=== PATIENT | female | born 1950 | race Caucasian/White ===

== ENCOUNTER → 2022-10-17 | Outpatient (CLI) | payer MEDICARE ==
--- NOTE | 2022-10-17 13:59 | Diagnostic Imaging Report ---
EXAMINATION: Right knee radiographs, 4 views. COMPARISON: None. HISTORY: 72-year-old female, right knee pain. FINDINGS: There is a right total knee prosthesis. The patella is normally positioned. There is no identified periprosthetic lucency. There is no identified acute fracture. There is a knee joint effusion. IMPRESSION: 1. Intact right total knee prosthesis without identified complication. 2. Knee joint effusion. Dictated by: Dictated on workstation # [id number]
== END ==
LOC: ORTHO 13:09
PROVIDERS: ATTEND Orthopaedic Surgery
DX: M25.461 Effusion, right knee (principal); M25.561 Pain in right knee
CPT/HCPCS: 73564; G0463; 99213